=== PATIENT | male | born 1985 | race Caucasian/White ===

== ENCOUNTER 2023-10-27 12:01 | Emergency (ER) | payer OTHER, SELFPAY ==
[2023-10-27 12:14] VITALS: BP 153/110; PULSE 106; TEMP 36.8; O2SAT 97; BMI 26.6
[2023-10-27 13:05] LABS: Basophils Absolute Auto 0.1 10^3/uL (0.0-0.1); Basophils Percent Auto 0.9 % (0.2-2.0); Hemoglobin 14.8 g/dL (14.0-18.0); Immature Granulocytes Abs Auto 0.09 10^3/uL (0.00-0.03); Immature Granulocytes Pct Auto 0.9 % (0.0-0.5); Lymphocytes Absolute Auto 3.4 10^3/uL (1.2-3.8); Lymphocytes Percent Auto 35.6 % (20.5-60.0); Mean Corpuscular HGB Conc 33.6 g/dL (29.9-35.2); Mean Corpuscular Hemoglobin 29.7 pg (25.9-34.0); Mean Corpuscular Volume 88.2 fL (80.0-94.0); Mean Platelet Volume 9.6 fL (9.5-13.5); Monocytes Absolute Auto 0.8 10^3/uL (0.3-0.8); Monocytes Percent Auto 8.2 % (1.7-12.0); Neutrophils Absolute Auto 5.3 10^3/uL (1.4-6.5); Neutrophils Percent Auto 54.4 % (43.0-75.0); Platelet Count 337 10^3/uL (150-450); Red Blood Count 4.99 10^6/uL (4.70-6.10); Red Cell Distribution Width 13.2 % (11.0-15.0); White Blood Count 9.7 10^3/uL (4.0-11.0)
[2023-10-27 13:17] LABS: Amphetamine Screen Urine NEGATIVE (NEGATIVE); Barbiturates Screen Urine NEGATIVE (NEGATIVE); Benzodiazepines Screen Urine NEGATIVE (NEGATIVE); Buprenorphine Screen Urine NEGATIVE (NEGATIVE); Cannabinoid Screen Urine NEGATIVE (NEGATIVE); Cocaine Screen Urine POSITIVE (NEGATIVE); Methadone Screen Urine NEGATIVE (NEGATIVE); Methamphetamines Screen Urine NEGATIVE (NEGATIVE); Opiate Screen Urine NEGATIVE (NEGATIVE); Oxycodone Screen Urine NEGATIVE (NEGATIVE); Phencyclidine Screen Urine NEGATIVE (NEGATIVE); Tricyclic Antidepressant Urine NEGATIVE (NEGATIVE)
[2023-10-27 13:21] LABS: Alanine Aminotransferase 48 U/L (16-63); Albumin Globulin Ratio 0.9; Albumin Level 3.6 g/dL (3.4-5.0); Alkaline Phosphatase 114 U/L (46-116); Anion Gap 15.9; Aspartate Amino Transferase 31 U/L (15-37); BUN Creatinine Ratio 16.1; Bilirubin Total 0.3 mg/dL (0.2-1.0); Calcium 8.6 mg/dL (8.5-10.1); Carbon Dioxide 22.7 mmol/L (21.0-32.0); Chloride 108 mmol/L (98-107); Estimated GFR (African America >60 (>=60); Estimated GFR (Non-African Ame >60 (>=60); Ethanol 289 mg/dL; Glucose 117 mg/dL (74-106); INR 1.13; Magnesium 2.2 mg/dL (1.8-2.4); Phosphorus 2.7 mg/dL (2.6-4.7); Potassium 3.6 mmol/L (3.5-5.1); Prothrombin Time 11.9 sec (9.0-11.6); Sodium 143 mmol/L (136-145); Total Protein 7.6 g/dL (6.4-8.2)
[2023-10-27] MEDS: 0.9 % SODIUM CHLORIDE 1,000 ML 999 ML IV (13:52)
[2023-10-27] MEDS: CEPHALEXIN 500 MG CAPSULE PO (13:53)
--- NOTE | 2023-10-27 15:25 | ECG_ITS ---
[facility] Test Date: 2023-10-27 Pat Name: MAYO DONIS Department: Room: - Gender: Male Childcare Aide: : 1985 Requested By: [id number] Order Number: [id number] Reading MD: MAYLIN FARLEY Measurements Intervals Seibert Rate: 81 P: 46 MT: 148 QRS: 82 QRSD: 90 T: 50 QT: 370 QTc: 407 Interpretive Statements 1100 Sinus rhythm 9110 normal ECG No previous ECG available for comparison Electronically Signed On 10-28-2023 19:16:48 EDT by MAYLIN FARLEY
--- NOTE | 2023-10-27 15:28 | ED.GENADUL1 ---
HPI HPI - General Adult General Chief complaint: Alcohol Stated complaint: ALCOHOL Time Seen by Provider: 10/27/23 13:07 Source: patient Mode of arrival: walk-in Limitations: no limitations History of Present Illness HPI narrative: 38-year-old male presents to the emergency department for medical clearance. Patient attempted to go to [facility] for alcohol detox, but when they noted his level to be too high, sent him in for clearance. Had last drink around 1 900 hours this morning that consisted of beer and wine. Patient's only complaint is of a bump to the right buttock. He has been on antibiotics which has been steadily improving. He denies any suicidal or homicidal ideation. Denies any hallucinations. Quality:?as above Severity:?mild Timing:?today Context: Normal setting and activity? Modifying factors:?none Associated symptoms: none Related Data Allergies Allergy/AdvReac Type Severity Reaction Status Date / Time No Known Drug Allergies Allergy Verified 10/27/23 12:14 Opioid HPI Opioid Management Most Recent Opioid Data: Ur Phencyclidine Scrn Negative (NEGATIVE) 10/27/23 12:32 Review of Systems ROS Narrative CONST: Denies fever, chills HENT: Denies congestion, sore throat EYES: Denies eye redness, visual disturbance RESP: Denies cough, shortness of breath CV: Denies chest pain, palpitations GI: Denies abd pain, nausea, vomiting : Denies dysuria, flank pain MS: Denies back pain, myalgias SKIN: + lesion/infection. NEURO: Denies numbness, weakness PSYCHIATRIC: Denies confusion, agitation, mental, homicidal ideation, hallucinations. Exam Narrative Exam Narrative: Vital signs reviewed Nurses notes noted CONST: Nontoxic, well appearing, well nourished, in no distress.? No diaphoresis.?? HENT: normocephalic, atraumatic, moist mucous membrane, no abnormalities of the nose noted, hearing normal EYES: normal appearing conjunctiva, no apparent discharge bilat NECK: normal appearance CV: normal rate, regular rhythm, no murmur RESP: normal effort, speaking in complete sentences. Lung sounds clear and equal bilat.? No wheezes, rales, rhonchi : no CVA tenderness MS: no edema, tenderness SKIN: no pallor. Patient has small area of redness to the right buttock near the perineum. No involvement of the perineum. No induration, fluctuance, pointing. NEURO: A&Ox 3, no focal findings PSYCH: normal mood, affect. Slurred speech consistent with report of alcohol use. Constitutional Vital Signs, click to edit/add: Last Vital Signs Temp 98.2 F 10/27/23 12:14 Pulse 106 H 10/27/23 12:14 Resp 17 10/27/23 12:14 BP 147/107 H 10/27/23 15:54 Pulse Ox 97 10/27/23 12:14 O2 Del Method Room Air 10/27/23 12:14 Course Reevaluation(s) Reevaluation #1: Patient remained stable. He voices no complaints. Time: 16:48 Vital Signs Vital signs: Vital Signs Temperature 98.2 F 10/27/23 12:14 Pulse Rate 106 H 10/27/23 12:14 Respiratory Rate 17 10/27/23 12:14 Blood Pressure 153/110 H 10/27/23 12:14 Pulse Oximetry 97 10/27/23 12:14 Oxygen Delivery Method Room Air 10/27/23 12:14 Temperature 98.2 F 10/27/23 12:14 Pulse Rate 106 H 10/27/23 12:14 Respiratory Rate 17 10/27/23 12:14 Blood Pressure 147/107 H 10/27/23 15:54 Pulse Oximetry 97 10/27/23 12:14 Oxygen Delivery Method Room Air 10/27/23 12:14 Medical Decision Making MDM Narrative Medical decision making narrative: This is a 38-year-old male who was sent over by [facility] detox facility for medical clearance. Patient chronically uses alcohol. Last drink at 0900 hrs. this morning. Denies any suicidal or homicidal ideation. Only medical complaint is skin infection to his buttock. Has been on antibiotics for this. Denies any chest pain. On arrival afebrile, slightly hypertensive, heart rate 106. O2 sat 97% On exam, nontoxic, well-appearing patient in no distress his speech is slightly slurred consistent with report of alcohol use. No focal deficits. He does have some mild redness to the right buttock. No induration, pointing, suspicion of abscess on exam. Labs reveal no leukocytosis, anemia, thrombocytopenia, electrolyte imbalance, renal impairment. LFTs, lipase unremarkable. Alcohol level 289. Urine tox tested positive for cocaine. EKG reveals no acute or concerning changes. Patient monitored, hydrated, given his dose of antibiotics during ED course. He remained stable. No confusion, increasing anxiety, or other signs or symptoms that would raise concern for DTs. Disposition` ? The patient was discharged. Plan: Patient will be discharged to [facility]. Condition at time of disposition: stable ? Advised to follow up with provider at [facility]. Advised to continue his antibiotics as previously prescribed. Advised to return for any worsening and/or development of new, concerning signs or symptoms PLEASE NOTE: Portions of the medical record may have been produced using electronic country printer and may contain errors with respect to translation of words which may not have been identified prior to finalization of the chart. Lab Data Labs: Lab Results 10/27/23 10/27/23 10/27/23 Range/Units 12:32 12:58 15:26 WBC 9.7 (4.0-11.0) 10^3/uL RBC 4.99 (4.70-6.10) 10^6/uL Hgb 14.8 (14.0-18.0) g/dL Hct 44.0 (42.0-54.0) % MCV 88.2 (80.0-94.0) fL MCH 29.7 (25.9-34.0) pg MCHC 33.6 (29.9-35.2) g/dL RDW 13.2 (11.0-15.0) % Plt Count 337 (150-450) 10^3/uL MPV 9.6 (9.5-13.5) fL Neut % (Auto) 54.4 (43.0-75.0) % Lymph % (Auto) 35.6 (20.5-60.0) % [facility] % (Auto) 8.2 (1.7-12.0) % Eos % (Auto) 0.0 L (0.9-7.0) % Baso % (Auto) 0.9 (0.2-2.0) % Neut # (Auto) 5.3 (1.4-6.5) 10^3/uL Lymph # (Auto) 3.4 (1.2-3.8) 10^3/uL [facility] # (Auto) 0.8 (0.3-0.8) 10^3/uL Eos # (Auto) 0.0 (0.0-0.7) 10^3/uL Baso # (Auto) 0.1 (0.0-0.1) 10^3/uL Abs Immat Gran (auto) 0.09 H (0.00-0.03) 10^3/uL Imm/Tot Granulo (auto) 0.9 H (0.0-0.5) % PT 11.9 H (9.0-11.6) sec INR 1.13 Sodium 143 (136-145) mmol/L Potassium 3.6 (3.5-5.1) mmol/L Chloride 108 H (98-107) mmol/L Carbon Dioxide 22.7 (21.0-32.0) mmol/L Anion Gap 15.9 BUN 14.0 (7.0-18.0) mg/dL Creatinine 0.87 (0.70-1.30) mg/dL Est GFR ( Amer) >60 (>=60) Est GFR (Non-Af Amer) >60 (>=60) BUN/Creatinine Ratio 16.1 Glucose 117 H (74-106) mg/dL Calcium 8.6 (8.5-10.1) mg/dL Phosphorus 2.7 (2.6-4.7) mg/dL Magnesium 2.2 (1.8-2.4) mg/dL Total Bilirubin 0.3 (0.2-1.0) mg/dL AST 31 (15-37) U/L ALT 48 (16-63) U/L Alkaline Phosphatase 114 (46-116) U/L Total Protein 7.6 (6.4-8.2) g/dL Albumin 3.6 (3.4-5.0) g/dL Globulin 4.0 g/dL Albumin/Globulin Ratio 0.9 Lipase 42.0 (16.0-77.0) U/L Urine Opiates Screen Negative (NEGATIVE) Ur Buprenorphine Scrn Negative (NEGATIVE) Ur Oxycodone Screen Negative (NEGATIVE) Urine Methadone Screen Negative (NEGATIVE) Ur Barbiturates Screen Negative (NEGATIVE) U Tricyclic Antidepress Negative (NEGATIVE) Ur Phencyclidine Scrn Negative (NEGATIVE) Ur Amphetamines Screen Negative (NEGATIVE) U Methamphetamines Scrn Negative (NEGATIVE) U Benzodiazepines Scrn Negative (NEGATIVE) Urine Cocaine Screen Positive A (NEGATIVE) U Cannabinoids Screen Negative (NEGATIVE) Ethanol Quant 289 274 mg/dL Discharge Plan Discharge Stand Alone Forms: Portal Instructions Chief Complaint: Alcohol Clinical Impression: Alcohol abuse, Bacterial skin infection Alcoholic intoxication Qualifiers: Complication of substance-induced condition: uncomplicated Qualified Code(s): F10.920 - Alcohol use, unspecified with intoxication, uncomplicated Patient Disposition: Home, Self-Care Time of Disposition Decision: 16:47 Condition: Good Mode of Transportation: Private Vehicle Print Language: Amharic Instructions: Abuse of Alcohol (ED), Alcohol Use Disorder (ED) Additional Instructions: Continue taking your antibiotics as previously prescribed Referrals: Ambrosio Alcala MD [Physician] - 1 week Discharge Date/Time: 10/27/23 17:53
[2023-10-27 15:51] LABS: Ethanol 274 mg/dL
[2023-10-27 15:54] VITALS: BP 147/107; PULSE 81
== END 2023-10-27 17:53 | disposition home or self-care (01) ==
PROVIDERS: Physician Assistant; Emergency Provider Emergency Medicine
DX: F10.129 Alcohol abuse with intoxication, unspecified (principal); L08.9 Local infection of the skin and subcutaneous tissue, unspecified; B96.89 Other specified bacterial agents as the cause of diseases classified elsewhere; Y90.8 Blood alcohol level of 240 mg/100 ml or more
CPT/HCPCS: 36415; 80053; 80307; 80320; 83690; 83735; 83935; 84100; 85025; 85610; 93005; 99285